=== PATIENT | male | born 1955 | race Caucasian/White ===

== ENCOUNTER → 2016-08-13 | Outpatient (CLI) | payer MEDICARE, OTHER ==
--- NOTE | 2016-08-13 15:05 | US ---
EXAMINATION TYPE: US gallbladder DATE OF EXAM: 08/13/2016 2:24 PM COMPARISON: CT abdomen and pelvis January 16, 2015. CLINICAL HISTORY: R10.11 RUQ Pain, R10.[address] on PACS. Patient states has had back jimenez rgeries and neck surgeries; epigastric pain with meals EXAM MEASUREMENTS: Liver Length: 12.0 cm Gallbladder Wall: 0.1 cm CBD: 0.3 cm Right Kidney: 9.1 x 4.9 x 4.2 cm TECHNOLOGIST IMPRESSION: Pancreas: wnl Liver: wnl Gallbladder: wnl Evidence for sonographic Galaviz's sign: No CBD: wnl Right Kidney: couple of renal cysts with larger at upper pole = 0.8 x 0.9 x 0.6cm Visualized pancreas is unremarkable. Proximal abdominal aorta measures up to 2.9 cm in AP diameter. V isualized liver is felt within normal limits. There are no shadowing mobile gallstones in gallbladder . A few tiny simple appearing cysts are felt scattered throughout the right kidney though all lesions are subcentimeter and thus too small to definitively characterize. IMPRESSION: No gallstones or ultrasound evidence for acute cholecystitis.
--- NOTE | 2016-08-13 17:57 | NM ---
EXAMINATION TYPE: NM hepatobiliary w EF DATE OF EXAM: 08/13/2016 5:12 PM COMPARISON: Ultrasound gallbladder 13 August 2016, CT abdomen and pelvis 16 January 2015 HISTORY: Right upper quadrant pain, epigastric pain TECHNIQUE: After the intravenous administration of 5.5 mCi Tc 99m Mebrofenin hepatobiliary scintigrap hy is performed. Immediate images post injection. FINDINGS: There is satisfactory initial accumulation of tracer by the liver. The gallbladder is visualized wit hin 16 minutes. Acquisition of images was subsequently aborted at approximately 22 minutes. Small bow el activity is detected on delayed images. No bladder ejection fraction calculated at 75%. IMPRESSION: Exam somewhat disjointed as described. Gallbladder ejection fraction is calculated at nor mal.
== END | disposition home or self-care (01) ==
LOC: RADUSMAIN 13:52
PROVIDERS: ATTEND Surgery Plastic and Reconstructive Surgery
DX: R10.13 Epigastric pain (principal); R10.11 Right upper quadrant pain
CPT/HCPCS: 76705; 78226; A9537

== ENCOUNTER → 2017-11-07 | Outpatient (CLI) | payer MEDICARE, OTHER ==
--- NOTE | 2017-11-07 16:03 | CT ---
EXAMINATION TYPE: CT facial bones wo con DATE OF EXAM: 11/07/2017 COMPARISON: NONE HISTORY: Lt jaw pain and swelling CT DLP: 551.6 mGycm CONTRAST: None Technique: The paranasal sinuses are examined in the axial plane at 2 mm thick sections. Reconstruct ed images in the coronal plane were obtained. FINDINGS: There is dental amalgam scatter artifact. Mandible appears intact. Temporomandibular juncti on appears normal. Zygomatic arches are normal. Maxillary spine is normal. Maxilla appears normal. The maxillary sinuses are clear. The ethmoid air cells are clear. The sphenoid sinuses are clear. The frontal sinuses are clear. The septum is evaluated. There is septal deviation to the left. The ostiomeatal units are patent. Portion of the mastoid air cells visualized are normal. BB cali the left parotid gland. There is a 0.2 cm calcification within the left inferior parotid gla nd additional punctate calcifications are within the bilateral parotid glands. IMPRESSIONS: 1. Sialolithiasis within the bilateral parotid glands. The largest on the left is 0.2 cm at the infe rior pole which is near the level marked by the BB at the level of the patient's swelling.
== END | disposition home or self-care (01) ==
LOC: RADCTMAIN 12:02
PROVIDERS: ATTEND Family Medicine
DX: K11.5 Sialolithiasis (principal); R19.7 Diarrhea, unspecified
CPT/HCPCS: 70486; 84260

== ENCOUNTER → 2018-02-17 | Outpatient (CLI) | payer MEDICARE ==
[2018-02-17 14:30] LABS: Basophils % (A) 1 %; Eosinophils # (A) 0.1 k/uL (0-0.7); Eosinophils % (A) 2 %; HCT 43.2 % (39.0-53.0); HGB 14.9 gm/dL (13.0-17.5); Lymphocytes # (A) 0.9 k/uL (1.0-4.8); Lymphocytes % (A) 19 %; MCH 31.9 pg (25.0-35.0); MCHC 34.6 g/dL (31.0-37.0); MCV 92.3 fL (80.0-100.0); Mean Platelet Volume 7.7; Monocytes # (A) 0.3 k/uL (0-1.0); Monocytes % (A) 6 %; Neutrophils # (A) 3.3 k/uL (1.3-7.7); Neutrophils % (A) 69 %; Platelet Count 238 k/uL (150-450); RBC 4.68 m/uL (4.30-5.90); RDW 12.6 % (11.5-15.5); WBC 4.7 k/uL (3.8-10.6)
--- NOTE | 2018-02-17 14:39 | XR ---
EXAMINATION TYPE: XR chest 2V DATE OF EXAM: 02/17/2018 COMPARISON: NONE TECHNIQUE: PA and lateral views submitted. HISTORY: Sarcoidosis FINDINGS: The lungs are clear and there is no pneumothorax, pleural effusion, or focal pneumonia. Biapical pl eural thickening. Postsurgical change overlying the cervical spine. Curvature of the thoracic spine. Arthropathy of the shoulders. Hypertrophic change of the spine. IMPRESSION: 1. No acute process.
[2018-02-17 15:52] LABS: Erythrocyte Sedimentation Rate 8 mm/hr (0-15)
== END | disposition home or self-care (01) ==
LOC: LABWHC1 13:54
PROVIDERS: ATTEND Otolaryngology
DX: D86.9 Sarcoidosis, unspecified (principal); K11.7 Disturbances of salivary secretion
CPT/HCPCS: 36415; 71046; 82164; 85025; 85652; 86038; 86235

== ENCOUNTER → 2018-03-09 | Outpatient (CLI) | payer MEDICARE, OTHER ==
--- NOTE | 2018-03-09 13:56 | CT ---
EXAMINATION TYPE: CT facial bones wo con DATE OF EXAM: 03/09/2018 COMPARISON: 11/07/2017 HISTORY: Patient states he had mass of right parotid removed , but still has lumps remaining ju st anterior and inferior to left ear. CT DLP: 341.7 mGycm CONTRAST: 0 mL of Isovue 300 The paranasal sinuses are examined in the axial plane at 2 mm thick sections. Reconstructed images i n the coronal plane were obtained. There is dental amalgam scatter artifact The maxillary sinuses are clear. The ethmoid air cells are clear. The sphenoid sinuses are clear. The frontal sinuses are clear. The septum is evaluated. There is septal deviation to the left. The ostiomeatal units are patent. Bilateral parotid glands are evaluated. There multiple small calcifications within the parotid glands could be a sialolithiasis. IMPRESSIONS: 1. No suspicious parotid masses or lymphadenopathy. 2. Multiple small rounded calcifications within the bilateral parotid glands may be sialolithiasis.
== END | disposition home or self-care (01) ==
LOC: RADCTMAIN 11:07
PROVIDERS: ATTEND Family Medicine
DX: K11.8 Other diseases of salivary glands (principal)
CPT/HCPCS: 70486

== ENCOUNTER → 2018-04-13 | Outpatient (CLI) | payer MEDICARE, OTHER ==
--- NOTE | 2018-04-13 10:19 | MR ---
MRI CERVICAL SPINE: CLINICAL HISTORY: Cervical disc displacement, history of surgery 9 years ago TECHNIQUE: Multiplanar, multisequence imaging of the cervical spine is performed without and with IV contrast, 7 cc of gadolinium was given intravenously. COMPARISON: None. FINDINGS: Sagittal images of the cervical spine show the craniocervical junction to appear within nor mal limits. The cervical and upper thoracic spinal cord is normal in course, caliber, and signal. Co beny images show levoconvex scoliotic curvature positioning centered in the upper thoracic spine. Sa gittal images alignment is satisfactory. There is artifact from anterior fusion plate and suspected i ntervertebral metallic fusion C3-C6 levels. Satisfactory alignment is identified. No suspicious poste rior retropulsion or effacement is seen. There is mild disc space narrowing C2-C3 level. There is mod erate disc space narrowing C6-C7 level. Tiny posterior disc herniations are seen C6-C7 and C7-T1 leve ls on sagittal images. The bone marrow signal intensity is within normal limits above and below surgi estrella levels. No significant spurring is evident. No suspicious enhancement is evident. Axial images at C2-C3 level show left-sided uncovertebral facet degenerative changes causing mild lef t-sided neural foraminal narrowing. Right-sided neural foramen is patent. Axial images at C3-C4 level show artifact from surgical change otherwise are felt within normal limit s. Axial images at C4-C5 level show artifact from surgical change, there is left-sided uncovertebral fac et degenerative changes causing asymmetric mild to moderate left-sided neural foraminal narrowing. Axial images at the C5-C6 level show artifact from surgical change. There is left foraminal spurring or spur disc complex causing asymmetric moderate to advanced left-sided neural foraminal narrowing se en best axial image 21. Right-sided neural foramen is patent. Spinal canal is preserved. Axial images at C6-C7 level show foraminal spur disc complexes causing mild to moderate bilateral josefina ral foraminal narrowing. Spinal canal is mildly effacing anteriorly. Axial images at C7-T1 level show some effacement of anterior thecal sac due to small posterior disc p rotrusion. Bilateral neural foramina are patent. IMPRESSION: Postsurgical change C3 through the C6 level with satisfactory alignment. Some multilevel degenerative changes are seen as detailed above.
== END | disposition home or self-care (01) ==
LOC: RADMRIMAIN 08:21
PROVIDERS: ATTEND Orthopaedic Surgery Orthopaedic Surgery of the Spine
DX: Z47.89 Encounter for other orthopedic aftercare (principal); M47.812 Spondylosis without myelopathy or radiculopathy, cervical region; Z98.1 Arthrodesis status; Z13.9 Encounter for screening, unspecified; Z98.890 Other specified postprocedural states
CPT/HCPCS: 82565; 72156; 36415; A9585

== ENCOUNTER 2021-07-22 01:58 | Observation (INO) | payer MEDICARE, OTHER ==
[2021-07-22] MEDS ORDERED: KETOROLAC 15 MG/ML 1 ML VIAL IM STA (02:36)
[2021-07-22] MEDS ORDERED: diazePAM 5 MG TAB PO STA (02:37)
[2021-07-22] MEDS ORDERED: HYDROmorphone 1 MG/ML 1 ML SYRINGE IM STA (03:26)
--- NOTE | 2021-07-22 04:37 | CT ---
EXAMINATION TYPE: CT cervical spine wo con DATE OF EXAM: 07/22/2021 COMPARISON: MRI scan cervical spine 04/13/2018 HISTORY: chronic neck pain CT DLP: 358.7 mGycm Automated exposure control for dose reduction was used. Images obtained from the skull base to T1 vertebra without contrast. The vertebra have fairly normal alignment. There is diffuse anterior fusion surgery from C3 to C6. Th e posterior elements appear intact. There is no compression fracture. There is defect in the anterior arch of C1 which is chronic appearing. The prevertebral soft tissues appear intact. The skull base i s intact. There is normal aeration of the mastoid sinuses. IMPRESSION: There is linear defect through the anterior arch of C1 vertebra that is slightly irregular and likely chronic injury. No definite acute fracture. Multilevel fusion surgery. Alignment of the vertebra not changed compared to old exam.
[2021-07-22] MEDS ORDERED: ONDANSETRON ODT 4 MG TAB PO STA (05:36)
--- NOTE | 2021-07-22 05:43 | ED ---
Neck Injury/Pain HPI - General Chief Complaint: Neck Pain/Injury Stated Complaint: Neck Pain Mode of arrival: ambulatory Limitations: no limitations - History of Present Illness Initial Comments: 66-year-old male with past medical history of degenerative disc disease, fibromyalgia, chronic back pain presents to the emergency department or neck pain. Reports that he was originally injured when he was 12 years old and has had chronic neck pain his entire life. He did have an anterior cervical fusion from C3 through C6 in the remote past. He has continued to suffer with chronic pain. States over the past 6 months his pain has gotten worse and as of the last few days has been intractable. Reports that he has now developed some numbness in his right fifth digit. He denies any new trauma. He has not taken any medications at home for his pain. Patient hunting to get into a spine doctor however has not had any success. He is from the [facility] and is just in town visiting. He denies any headaches or visual changes. No fevers. No history of intravenous drug use. No history of cervical abscesses. No other alleviating, precipitating or modifying factors - Related Data Home Medications Medication Instructions Recorded Confirmed Cholecalciferol [Vitamin D3 (25 50 mcg PO DAILY 07/22/21 07/22/21 Mcg = 1000 Iu)] Rosuvastatin [Crestor] 20 mg PO HS 07/22/21 07/22/21 Previous Rx's Medication Instructions Recorded oxyCODONE-APAP 5-325MG [Percocet 1 each PO Q4HR PRN #18 tab 07/24/21 5-325 mg] Allergies Allergy/AdvReac Type Severity Reaction Status Date / Time gabapentin [From Neurontin] Allergy Severe Swelling Verified 07/22/21 07:54 morphine Allergy Severe Dyspnea Verified 07/22/21 07:54 pregabalin [From Lyrica] Allergy Severe Swelling Verified 07/22/21 07:54 shellfish derived [Shrimp] Allergy Severe SWELLING, Verified 07/22/21 07:54 REDNESS azithromycin Allergy Unknown Unknown Verified 07/22/21 07:54 [From Zithromax Z-Emory] levofloxacin [From Levaquin] Allergy Unknown Unknown Verified 07/22/21 07:54 Penicillins Allergy Unknown Unknown Verified 07/22/21 07:54 Childhood sulfamethoxazole Allergy Unknown Unknown Verified 07/22/21 07:54 [From Bactrim] trimethoprim [From Bactrim] Allergy Unknown Unknown Verified 07/22/21 07:54 yeast, dried [yeast] Allergy Unknown Unknown Verified 07/22/21 07:54 black pepper Allergy Unknown Verified 07/24/21 06:26 cheese Allergy Unknown Verified 07/24/21 06:26 garlic Allergy Unknown Verified 07/24/21 06:26 Iodinated Contrast Media Allergy Swelling Verified 07/22/21 07:54 [Iodinated Contrast Media - IV Dye] milk Allergy Unknown Verified 07/24/21 06:26 silver Allergy Swelling Verified 07/22/21 07:54 [From Tegaderm AG Mesh] TEGADERM Allergy Severe Swelling Uncoded 07/22/21 07:54 TEGADERM IV BANDAGE Allergy Swelling Uncoded 07/22/21 07:54 Review of Systems ROS Statement: Those systems with pertinent positive or pertinent negative responses have been documented in the HPI. ROS Other: All systems not noted in ROS Statement are negative. Past Medical History Past Medical History: Fibromyalgia, Hyperlipidemia, Musculoskeletal Disorder, Osteoarthritis (OA) Additional Past Medical History / Comment(s): DDD, BACK PAIN, LEFT INGUINAL HERNIA. WEANING HIMSELF OFF PAIN MEDS. covid X2 History of Any Multi-Drug Resistant Organisms: None Reported Past Surgical History: Back Surgery, Hernia Repair, Orthopedic Surgery, Tonsillectomy Additional Past Surgical History / Comment(s): BACK SURGERY X3(LAST JUN 2014), NECK SURGERY WITH STEEL PLATES, RT KNEE SURG, CYST AXILLA , RT ING HERNIA Past Anesthesia/Blood Transfusion Reactions: No Reported Reaction Past Psychological History: Depression Smoking Status: Never smoker Past Alcohol Use History: None Reported Past Drug Use History: None Reported - Past Family History Father Family Medical History: Cancer Additional Family Medical History / Comment(s): LUNG CA Brother(s) Family Medical History: Cancer Additional Family Medical History / Comment(s): SKIN CA General Exam Limitations: no limitations General appearance: alert, in no apparent distress Head exam: Present: atraumatic, normocephalic, normal inspection Eye exam: Present: normal appearance, PERRL, EOMI. Absent: scleral icterus, conjunctival injection, periorbital swelling ENT exam: Present: normal exam, mucous membranes moist Neck exam: Present: tenderness (paraspinal tenderness. Equal fourdrinier tender strength bilaterally ). Absent: meningismus, lymphadenopathy Respiratory exam: Present: normal lung sounds bilaterally. Absent: respiratory distress, wheezes, rales, rhonchi, stridor Cardiovascular Exam: Present: regular rate, normal rhythm, normal heart sounds. Absent: systolic murmur, diastolic murmur, rubs, gallop, clicks GI/Abdominal exam: Present: soft, normal bowel sounds. Absent: distended, tenderness, guarding, rebound, rigid Extremities exam: Present: normal inspection, full ROM, normal capillary refill. Absent: tenderness, pedal edema, joint swelling, calf tenderness Back exam: Present: normal inspection Neurological exam: Present: alert, oriented X3, CN II-XII intact Psychiatric exam: Present: normal affect, normal mood Skin exam: Present: warm, dry, intact, normal color. Absent: rash Course Vital Signs 07/22/21 07/22/21 07/22/21 02:08 04:10 07:00 Temperature 97.8 F 98.2 F Pulse Rate 77 78 72 Pulse Rate [ 62 Right Prone] Respiratory 18 18 20 Rate Blood Pressure 158/104 142/90 146/93 Blood Pressure 141/77 [Right Arm Prone] O2 Sat by Pulse 98 95 98 Oximetry Medical Decision Making - Medical Decision Making Upon arrival patient was placed into room 18. A thorough history and physical exam was performed. Patient was given 5 mg of Valium, 30 mg of IM Toradol. The patient is reevaluated and continues to have pain. Because of this he was given a dose of Dilaudid. Patient reports that this is only exacerbating his symptoms. He is now nauseated and vomiting. Requesting additional medications for his symptoms. At this time the patient is given 4 mg of Zofran and [address] of the cervical spine is performed which demonstrates a chronic C1 injury. She is reevaluated and states that his symptoms are not improved whatsoever. Because of this I did recommend admission. Spoke with Dr. Cárdenas who felt that the patient could be admitted to our facility with an MRI. Requested that the patient be placed in a cervical collar however he refused. Patient will be admitted to medicine. Did speak with Dr. Pompa who agreed to admit the patient. Orthopedics will be on consult. Patient taken to the floor in stable condition - Lab Data Result diagrams: 07/22/21 06:38 07/22/21 06:38 Disposition Clinical Impression: Neck pain, S/P cervical spinal fusion Disposition: ADMITTED IP TO THIS HOSP Condition: Stable Is patient prescribed a controlled substance at d/c from ED?: No Decision to Admit Reason: Admit from EC Decision Date: 07/22/21 Decision Time: 06:00
[2021-07-22] MEDS ORDERED: SODIUM CHLORIDE 0.9% 1,000 ML IV ONE (05:54)
[2021-07-22] MEDS ORDERED: CYCLOBENZAPRINE 10 MG TAB PO ONE (06:00)
[2021-07-22] MEDS ORDERED: NALOXONE 0.4 MG/ML 1 ML VIAL IV PRN (06:00)
[2021-07-22] MEDS ORDERED: ONDANSETRON 4 MG/2 ML VIAL IVP PRN (06:20)
[2021-07-22 06:44] LABS: Basophils % (A) 1 %; Eosinophils # (A) 0.1 k/uL (0-0.7); Eosinophils % (A) 2 %; HCT 43.3 % (39.0-53.0); Lymphocytes # (A) 1.3 k/uL (1.0-4.8); Lymphocytes % (A) 23 %; MCH 32.7 pg (25.0-35.0); MCHC 34.5 g/dL (31.0-37.0); MCV 94.6 fL (80.0-100.0); Mean Platelet Volume 8.4; Monocytes # (A) 0.3 k/uL (0-1.0); Monocytes % (A) 4 %; Neutrophils # (A) 3.9 k/uL (1.3-7.7); Neutrophils % (A) 68 %; Platelet Count 233 k/uL (150-450); RBC 4.58 m/uL (4.30-5.90); RDW 12.3 % (11.5-15.5); WBC 5.7 k/uL (3.8-10.6)
[2021-07-22 06:56] LABS: ALT 32 U/L (4-49); AST 37 U/L (17-59); African American GFR (CKD) >90 (>60 ml/min/1.73 sqM); Albumin 4.5 g/dL (3.5-5.0); Alkaline Phosphatase 50 U/L (38-126); Anion Gap 9 mmol/L; Blood Urea Nitrogen 24 mg/dL (9-20); Calcium 9.3 mg/dL (8.4-10.2); Carbon Dioxide 21 mmol/L (22-30); Chloride 106 mmol/L (98-107); Glucose 122 mg/dL (74-99); Non-African American GFR(CKD) >90 (>60 ml/min/1.73 sqM); Sodium 136 mmol/L (137-145); Total Bilirubin 0.8 mg/dL (0.2-1.3); Total Protein 8.4 g/dL (6.3-8.2)
--- NOTE | 2021-07-22 08:54 | P.CNOR ---
<Jodi Lau - Last Filed: 07/22/21 12:52> History of Present Illness - [facility] Consult date: 07/22/21 Consult reason: neck pain History of present illness: The patient is a 66 y/o male that presented to the emergency department last night with severe neck pain. He does have a history of C3-C6 fusion in the past. The patient states his neck pain started about 6 months ago. He went to the ER in [place] and they gave him pain medication. He then went to a urgent care due to ongoing pain and they gave him more pain medication, a muscle relaxer and and a sleep medication. The patient states he has been unable to sleep due to the pain for months. He denies any injury. He has not seen anyone else on the outpatient basis for his neck pain. The patient is currently in the area visiting his daughter and her family. When he was in the ER last night, he states he was experiencing numbness in the bilateral thumbs and index fingers bu t that numbness has improved this morning. Pain medication was given and he started vomiting. He states he was nauseated before he came to the ER last night. Orthopedics was consulted for further evaluation of his cervical spine. Today, the patient is still nauseated and has vomited this morning. His neck still very painful. Review of Systems Constitutional: Denies chills, Denies fatigue, Denies fever Cardiovascular: Denies chest pain, Denies shortness of breath Respiratory: Denies cough Gastrointestinal: Reports nausea, Reports vomiting, Denies diarrhea Musculoskeletal: Reports neck pain, Reports neck stiffness Past Medical History Past Medical History: Fibromyalgia, Hyperlipidemia, Musculoskeletal Disorder, Osteoarthritis (OA) Additional Past Medical History / Comment(s): DDD, BACK PAIN, LEFT INGUINAL HERNIA. WEANING HIMSELF OFF PAIN MEDS. covid X2 History of Any Multi-Drug Resistant Organisms: None Reported Past Surgical History: Back Surgery, Hernia Repair, Orthopedic Surgery, Tonsillectomy Additional Past Surgical History / Comment(s): BACK SURGERY X3(LAST JUN 2014), NECK SURGERY WITH STEEL PLATES, RT KNEE SURG, CYST AXILLA , RT ING HERNIA Past Anesthesia/Blood Transfusion Reactions: No Reported Reaction Past Psychological History: Depression Smoking Status: Never smoker Past Alcohol Use History: None Reported Past Drug Use History: None Reported - Past Family History Father Family Medical History: Cancer Additional Family Medical History / Comment(s): LUNG CA Brother(s) Family Medical History: Cancer Additional Family Medical History / Comment(s): SKIN CA Medications and Allergies Home Medications Medication Instructions Recorded Confirmed Type Cholecalciferol [Vitamin D3 (25 50 mcg PO DAILY 07/22/21 07/22/21 History Mcg = 1000 Iu)] Rosuvastatin [Crestor] 20 mg PO HS 07/22/21 07/22/21 History Allergies Allergy/AdvReac Type Severity Reaction Status Date / Time gabapentin [From Neurontin] Allergy Severe Swelling Verified 07/22/21 07:54 morphine Allergy Severe Dyspnea Verified 07/22/21 07:54 pregabalin [From Lyrica] Allergy Severe Swelling Verified 07/22/21 07:54 shellfish derived [Shrimp] Allergy Severe SWELLING, Verified 07/22/21 07:54 REDNESS azithromycin Allergy Unknown Unknown Verified 07/22/21 07:54 [From Zithromax Z-Emory] levofloxacin [From Levaquin] Allergy Unknown Unknown Verified 07/22/21 07:54 Penicillins Allergy Unknown Unknown Verified 07/22/21 07:54 Childhood sulfamethoxazole Allergy Unknown Unknown Verified 07/22/21 07:54 [From Bactrim] trimethoprim [From Bactrim] Allergy Unknown Unknown Verified 07/22/21 07:54 yeast, dried [yeast] Allergy Unknown Unknown Verified 07/22/21 07:54 Iodinated Contrast Media Allergy Swelling Verified 07/22/21 07:54 [Iodinated Contrast Media - IV Dye] silver Allergy Swelling Verified 07/22/21 07:54 [From Tegaderm AG Mesh] TEGADERM Allergy Severe Swelling Uncoded 07/22/21 07:54 TEGADERM IV BANDAGE Allergy Swelling Uncoded 07/22/21 07:54 Physical Examination The patient is a 66 y/o male in no acute distress. He is alert and oriented x3. The patient's head is normocephalic, atraumatic. Exam of the cervical spine reveals no open wounds or abrasions. There is moderate paraspinal spasms bilaterally on palpation. No stepoffs noted. The patient is unable to turn head in either direction due to pain. No flexion or extension due to pain and guarding. No numbness to the arms or hand this morning. Circulatory status to the bilateral upper extremities are intact. Results - Labs Labs: Abnormal Lab Results - Last 24 Hours (Table) 07/22/21 Range/Units 06:38 Sodium 136 L (137-145) mmol/L Carbon Dioxide 21 L (22-30) mmol/L BUN 24 H (9-20) mg/dL Glucose 122 H (74-99) mg/dL Total Protein 8.4 H (6.3-8.2) g/dL H & H 07/22/21 Range/Units 06:38 Hgb 15.0 (13.0-17.5) gm/dL Hct 43.3 (39.0-53.0) % Result Diagrams: 07/22/21 06:38 07/22/21 06:38 - Diagnostic results CT scan - cervical: image reviewed (CT of the cervical spine reveals a subacute C1 injury. Status post C3-C6 fusion. ) Assessment and Plan (1) Neck pain Current Visit: Yes Status: Acute Code(s): M54.2 - CERVICALGIA SNOMED Code(s): 98679791 (2) S/P cervical spinal fusion Current Visit: Yes Status: Acute Code(s): Z98.1 - ARTHRODESIS STATUS SNOMED Code(s): 8900899312358 Plan: The clinical and CT findings were discussed with the patient. The case was discussed at length with Dr. Cárdenas. No acute changes to the cervical spine and the C1 fracture is most likely subacute. We will start him on Solumedrol then change to PO taper on discharge. Continue Zofran for nausea control. Continue P ercocet for pain. I encouraged the patient to use the cervical collar but he states the collar causes too much pain. An MRI has been ordered. Hard collar has been ordered and needs to be applied to the patient when available. We will awaiting MRI results and the patient will be seen by Dr. Estrella or AMALIA Carias tomorrow for further evaluation by orthopedic spine surgery. <Julianne Cárdenas - Last Filed: 07/22/21 13:58> History of Present Illness - HPI History of present illness: Cervical fusion was 11 year ago. Pt does not remember where. He has chronic facial drooping and pupillary dilation on the left side since then. He started having worsening pain in the last 6 months to a year. He states that he will occasionally "black out" from the pain. He does not endorse any dizziness prior to these events and they have never resulted in a fall. The last episode was a week ago when he laid down on the couch to rest because of the pain and his friend had to wake him up. This has been going on for about the last year. His nausea has resolved and he does not feel any dizziness. Physical Examination Osteopathic Statement: *. No significant issues noted on an osteopathic structural exam other than those noted in the History and Physical/Consult. Results - Labs Labs: Abnormal Lab Results - Last 24 Hours (Table) 07/22/21 Range/Units 06:38 Sodium 136 L (137-145) mmol/L Carbon Dioxide 21 L (22-30) mmol/L BUN 24 H (9-20) mg/dL Glucose 122 H (74-99) mg/dL Total Protein 8.4 H (6.3-8.2) g/dL H & H 07/22/21 Range/Units 06:38 Hgb 15.0 (13.0-17.5) gm/dL Hct 43.3 (39.0-53.0) % Result Diagrams: 07/22/21 06:38 07/22/21 06:38 Assessment and Plan Plan: Imaging shows that fusion is solid but the area around the C1 fracture seems to suggest that it is subacute. This seems consistent with the lack of recent trauma of any sort. We will get an MRI to confirm chronicity and have the patient use a hard collar until then. We'll also get a CTA with premedication for his reported allergy to rule out any arterial injury. Agree with Solumedrol for pain control, especially because it seems like he is very sensitive to strong opiates.
[2021-07-22] MEDS: CHOLECALCIFEROL 25 MCG (1000 IU) TABLET PO SCH (09:00)
[2021-07-22] MEDS: KETOROLAC 30 MG/ML 1 ML VIAL IVP PRN ×2 (09:06→22:57)
[2021-07-22] MEDS: oxyCODONE-APAP 5-325MG 1 EACH TAB PO PRN ×3 (09:13→20:51)
[2021-07-22] MEDS: methylPREDNISolone SOD SUCCI 125 MG/2 ML VIAL IV SCH ×3 (09:16→22:54)
[2021-07-22] MEDS: SODIUM CHLORIDE 0.9% 1,000 ML IV SCH ×2 (09:47→19:11)
[2021-07-22] MEDS ORDERED: diphenhydrAMINE 50 MG/ML 1 ML VIAL IVP ONE (13:59)
[2021-07-22] MEDS ORDERED: FAMOTIDINE 20 MG/2 ML VIAL IV ONE (13:59)
[2021-07-22] MEDS ORDERED: methylPREDNISolone SOD SUCCI 125 MG/2 ML VIAL IV ONE (13:59)
--- NOTE | 2021-07-22 16:00 | P.HPIM ---
<Anders Eisenberg - Last Filed: 07/22/21 15:40> History of Present Illness H&P Date: 07/22/21 History of Presenting Illness: Patient is a very pleasant 66-year-old male with a past medical history of hyperlipidemia, fibromyalgia, degenerative disc disease and chronic neck and back pain previously undergoing 4 previous neck surgeries in 2 backsurgeries. He presented to the emergency department with severe neck pain. Patient reports he has been experiencing uncontrolled neck pain off and on for the past 6 months progressively worsening and is now intractable. He reports pain is now shooting down right arm and is experiencing numbness in his fifth digit of right hand. Patient reports previous spinal surgeries by Dr. Ash of [facility]. In the emergency department, patient was seen and fully evaluated. CT cervical spine completed in the ER revealing linear defect. Anterior arch of C1 vertebra that is slightly irregular and likely chronic injury with no definitive acute fracture, multilevel fusion surgeries and alignment of the vertebra not change compared to previous examination. Lab work showing no significant abnormalities. Patient was admitted to observation under our services with consultation to orthospine. Patient seen and fully evaluated at the bedside. He reports tenderness 10 neck pain and inability to turn his head from side to side. Patient states pain chronically shoots down right arm and into the right fifth digit accompanied by numbness and fifth digit otherwise denies having any decreased range of motion, numbness, or tingling in his extremities. He denies having any headache or lightheadedness, changes in vision or hearing, difficulty swallowing or clearing secretions, chest pain, palpitations, or shortness of breath. Patient reports cervical collar was placed in the ED, but states that he took it off secondary to "it being uncomfortable". Review of systems: Pertinent positives and negatives as discussed in HPI, a complete review of systems was performed and all other systems are negative. Physical exam: Vital signs reviewed and stable. General: Nontoxic, no distress and appears stated age. Derm: Skin warm and dry, normal coloration for ethnicity. Head: Atraumatic, normocephalic and symmetric. Neck with decreased range of motion and inability to rotate, flex, or extend secondary to severe pain and muscle spasms. Eyes: EOMs intact, no lid lag, and anicteric sclera Mouth: No lip lesions, mucus membranes moist Cardiovascular: regular rate and rhythm with normal S1S2, no murmur, positive posterior tibial pulses bilaterally, and cap refill < 2 seconds. Lungs: Respirations even, regular, and unlabored on room air. Lungs CTA bilaterally, no rhonchi, no rales, no wheezing, and no accessory muscle usage. Abdominal: soft, nontender to palpation, no guarding, no appreciable organomegaly Ext: ROM intact. No gross muscle atrophy, no edema, no contractures Neuro: Speech clear, face symmetrical and CN II-XII grossly intact with no noted focal neuro deficits Psych: Alert and oriented to person, place, time, and situation. Appropriate and pleasant affect. Assessment and Plan of Care: Acute exacerbation of chronic Neck pain -Symptomatic care and pain management. -Steroids -Cervical collar -MRI cervical spine with and without contrast -Consult to orthospine specialist, awaiting recommendation. Hyperlipidemia -Continue daily medication regimen with atorvastatin 40 mg nightly. The patient is admitted with an anticipated less than than 2 midnight stay for evaluation of acute exacerbation of chronic pain. CODE STATUS: Full code DVT prophylaxis: Heparin Discussed with: Patient and RN Anticipated discharge date: Tomorrow Anticipated discharge place: Home A total of 45 minutes was spent on the care of this complex patient more than 50% of the time was spent in counseling and care coordination. Past Medical History Past Medical History: Fibromyalgia, Hyperlipidemia, Musculoskeletal Disorder, Osteoarthritis (OA) Additional Past Medical History / Comment(s): DDD, BACK PAIN, LEFT INGUINAL HERNIA. WEANING HIMSELF OFF PAIN MEDS. covid X2 History of Any Multi-Drug Resistant Organisms: None Reported Past Surgical History: Back Surgery, Hernia Repair, Orthopedic Surgery, Tonsillectomy Additional Past Surgical History / Comment(s): BACK SURGERY X3(LAST JUN 2014), NECK SURGERY WITH STEEL PLATES, RT KNEE SURG, CYST AXILLA , RT ING HERNIA Past Anesthesia/Blood Transfusion Reactions: No Reported Reaction Past Psychological History: Depression Smoking Status: Never smoker Past Alcohol Use History: None Reported Past Drug Use History: None Reported - Past Family History Father Family Medical History: Cancer Additional Family Medical History / Comment(s): LUNG CA Brother(s) Family Medical History: Cancer Additional Family Medical History / Comment(s): SKIN CA Medications and Allergies Home Medications Medication Instructions Recorded Confirmed Type Cholecalciferol [Vitamin D3 (25 50 mcg PO DAILY 07/22/21 07/22/21 History Mcg = 1000 Iu)] Rosuvastatin [Crestor] 20 mg PO HS 07/22/21 07/22/21 History Allergies Allergy/AdvReac Type Severity Reaction Status Date / Time gabapentin [From Neurontin] Allergy Severe Swelling Verified 07/22/21 07:54 morphine Allergy Severe Dyspnea Verified 07/22/21 07:54 pregabalin [From Lyrica] Allergy Severe Swelling Verified 07/22/21 07:54 shellfish derived [Shrimp] Allergy Severe SWELLING, Verified 07/22/21 07:54 REDNESS azithromycin Allergy Unknown Unknown Verified 07/22/21 07:54 [From Zithromax Z-Emory] levofloxacin [From Levaquin] Allergy Unknown Unknown Verified 07/22/21 07:54 Penicillins Allergy Unknown Unknown Verified 07/22/21 07:54 Childhood sulfamethoxazole Allergy Unknown Unknown Verified 07/22/21 07:54 [From Bactrim] trimethoprim [From Bactrim] Allergy Unknown Unknown Verified 07/22/21 07:54 yeast, dried [yeast] Allergy Unknown Unknown Verified 07/22/21 07:54 Iodinated Contrast Media Allergy Swelling Verified 07/22/21 07:54 [Iodinated Contrast Media - IV Dye] silver Allergy Swelling Verified 07/22/21 07:54 [From Tegaderm AG Mesh] TEGADERM Allergy Severe Swelling Uncoded 07/22/21 07:54 TEGADERM IV BANDAGE Allergy Swelling Uncoded 07/22/21 07:54 Physical Exam Vitals: Vital Signs Temp Pulse Pulse Resp BP BP Pulse Ox 07/22/21 07:00 98.2 F 72 62 20 146/93 141/77 98 07/22/21 04:10 78 18 142/90 95 07/22/21 02:08 97.8 F 77 18 158/104 98 Intake and Output 07/21/21 07/22/21 07/22/21 22:59 06:59 14:59 Other: Weight 65.771 kg Results CBC & Chem 7: 07/22/21 06:38 07/22/21 06:38 Labs: Abnormal Lab Results - Last 24 Hours (Table) 07/22/21 Range/Units 06:38 Sodium 136 L (137-145) mmol/L Carbon Dioxide 21 L (22-30) mmol/L BUN 24 H (9-20) mg/dL Glucose 122 H (74-99) mg/dL Total Protein 8.4 H (6.3-8.2) g/dL <Alisa Umana - Last Filed: 07/22/21 19:19> History of Present Illness Anders Eisenberg NP rendered care for this patient independently, reviewed the findings and plan as documented in the note above. I did not physically speak with or examine the patient on this date. Physical Exam Osteopathic Statement: *. No significant issues noted on an osteopathic structural exam other than those noted in the History and Physical/Consult. Vitals: Vital Signs Temp Pulse Pulse Resp BP BP Pulse Ox 07/22/21 14:23 98.4 F 72 16 123/84 95 07/22/21 07:00 98.2 F 72 62 20 146/93 141/77 98 07/22/21 04:10 78 18 142/90 95 07/22/21 02:08 97.8 F 77 18 158/104 98 Intake and Output 07/22/21 07/22/21 07/22/21 06:59 14:59 22:59 Intake Total 118 118 Balance 118 118 Intake: Oral 118 118 Other: # Voids 0 1 # Bowel Movements 0 Weight 65.771 kg 65.771 kg Results CBC & Chem 7: 07/22/21 06:38 07/22/21 06:38 Labs: Abnormal Lab Results - Last 24 Hours (Table) 07/22/21 Range/Units 06:38 Sodium 136 L (137-145) mmol/L Carbon Dioxide 21 L (22-30) mmol/L BUN 24 H (9-20) mg/dL Glucose 122 H (74-99) mg/dL Total Protein 8.4 H (6.3-8.2) g/dL
[2021-07-22] MEDS: HEPARIN SODIUM,PORCINE/PF 5,000 UNIT/0.5 ML SYRINGE SQ SCH ×2 (16:12→20:50)
--- NOTE | 2021-07-22 17:18 | CT ---
EXAMINATION TYPE: CT angio head neck DATE OF EXAM: 07/22/2021 COMPARISON: None HISTORY: neck trauma CT DLP: 1322.4 mGycm Automated exposure control for dose reduction was used. CONTRAST: Performed with IV Contrast, patient injected with 65 mL of Isovue 370. There are Three-D postprocessed images. Noncontrast images of the brain show no mass effect or midline shift. There is no sign of intracrania l hemorrhage. Calvarium is intact. There is normal branching pattern of the great vessels on the aortic arch. There is arterial flow in the subclavian arteries bilaterally. There is arterial flow in the common internal and external carot id arteries bilaterally. There is wide patency of the carotid artery bifurcations. There is arterial flow in both vertebral arteries. There is arterial flow in the anterior middle and posterior cerebral arteries. There is arterial flow in the vertebral basilar artery system. There is no evidence of intracranial aneurysm or neovascular ity. There is no mass effect. No evidence of intracranial arterial stenosis. There is normal enhancem ent of the venous sinuses. IMPRESSION: Negative CT angiogram of the neck. Negative CT angiogram of the brain. Negative noncontrast CT scan of the brain.
[2021-07-22] MEDS: ATORVASTATIN 40 MG TAB PO SCH (20:50)
[2021-07-23] MEDS: oxyCODONE-APAP 5-325MG 1 EACH TAB PO PRN ×3 (00:58→16:50)
[2021-07-23] MEDS ORDERED: HYDROmorphone 1 MG/ML 1 ML SYRINGE IVP STA (02:05)
[2021-07-23] MEDS: HEPARIN SODIUM,PORCINE/PF 5,000 UNIT/0.5 ML SYRINGE SQ SCH ×2 (08:24→15:37)
[2021-07-23] MEDS: CHOLECALCIFEROL 25 MCG (1000 IU) TABLET PO SCH (08:24)
[2021-07-23] MEDS: methylPREDNISolone SOD SUCCI 125 MG/2 ML VIAL IV SCH ×2 (08:25→15:38)
--- NOTE | 2021-07-23 13:08 | P.PN ---
Progress Note - Text Progress Note Date: 07/23/21 The patient is a 66-year-old male with chronic neck pain who seen and examined today at bedside in regards to his cervical spine. I was able to discuss case with Dr. Cárdenas and I was able us to speak with the PA and review the notes and review the images that we have available including the computed tomography scan of the cervical spine from yesterday. The patient says that he has had neck pain since he was 12 years old with a bridge fell on his head. He said he did not get any treatment specifically for that and had little care from his parents as well per the patient. He says he has been dealing with neck pain from is his whole life and then 11 years ago underwent cervical spine surgery and had multilevel fusion of his cervical spine. He has also had multilevel fusion in his lumbar spine in the past as well. He says that 2 years ago he also had further surgery at his neck and the base of his skull for his neurologic issues. He says the surgeries were done in [place]. He says he does not recall any specific new issue but started having increased pain in his neck approx imately 6 months ago. He says around that time he did not have any specific trauma but says he had issues with feeling like he was going to pass out. He says he did not fall. He specifically says that he did not have any fall because when he passes out can feel it coming he doesn't sits down or lays down and then wakes up 2 or 3 hours later due to his passing out. He says that he had this occurrence a couple of times before going to seek medical attention. He does not recall any specific medical treatment at that point and went home and went about his business. He says that a similar issue happened again about 2 months ago where he had episodes of passing out radiculopathy would lay down and wake up a couple hours later. He says he went to the walk-in clinic near his home but they did not find any new issues and sent him home as well. He does not have a primary care doctor. He says he got into an argument with his primary care 5 years ago and has not been able to reestablish with a new position. He is been on disability for the past 25 years. He lives at home but says that he has significant help from a friend. He says he is in town now to visit his and children and to get his taxes done. He says he has been having significant pain and was having nausea and presented to the emergency room where he was admitted yesterday. He says that he was having some numbness and tingling in his hands and fingers yesterday but that is completely resolved now. He denies any weakness in the upper extremity. Denies any weakness in his lower extremity is. He says he has pain from a hernia at his left lower quadrant and was having nausea from this as well. He says because of this he has not been able to lay on his left side and he feels like laying on his back has increased some of the pain in his neck. He denies any specific trauma. He denies any new neurologic change today. He denies any worsening neurologic symptoms. We placed him in a hard cervical collar ye sterday and he says that is more uncomfortable for him at his neck but is not causing any neurologic change. We ordered an MRI yesterday but has not been completed yet. Physical exam He's afebrile with stable vital signs Cervical collar is intact. He has some tenderness at the base of his occiput at the midline and at the paravertebral's bilaterally. There is no open wounds lacerations or abrasions. He has well-healed incisions around his left lateral anterior neck and his right lateral anterior neck. There is no erythema there is no swelling. He is nontender anteriorly at his neck. His shoulders have good 5 out of 5 strength with abduction and flexion. His upper extremities have good 5 out of 5 strength with biceps triceps and wrist flexion and extension thumb extension bar host/hostess and finger extension. He is no hyperreflexia. He has negative Melchor's. He has tenderness over his left middle finger with palpation. There is no open wounds lacerations or abrasions and he says this is chronic for him. His lower extremities have full 5 out of 5 muscle strength with dorsiflexion plantar flexion and EHL. He lifts his legs up off the bed independently. He has some tenderness his left lower quadrant of his abdomen. His abdomen soft and nondistended. His chest has good excursion with deep inspiration and expiration Sensory in his upper and lower extremities is intact. Imaging Computed tomography scan of his cervical spine from yesterday is reviewed. Shows a prior fusion with corpectomy and stable fusion from C3 to C6 with hardware intact and stable. There is degenerative change at C1 2 around the atlantodens interface. There appears to be a fracture at the anterior arch of the C1 vertebrae with minimal displacement. There is no posterior displacement of the dens. There is no obvious stenosis on computed tomography scan. The fracture at C1 appears to be somewhat old with sclerotic margins. There are sclerotic changes around the atlantodens interface. Assessment and plan C1 anterior arch fracture, minimally displaced and apparently chronic without specific incident or trauma C1 2 degenerative change at the atlantodens interface, chronic Chronic neck pain C3 to 6 anterior cervical fusion with stable solid fusion History of chronic low back pain History of fibromyalgia No acute new neurologic change Nausea and vomiting resolving Tingling and his fingers resolved, without upper extremity weakness It is difficult to fully ascertain the nature of the C1 anterior arch fracture. It is minimally displaced and without any apparent neurologic change. The fusion from C3 to 6 appears stable. The surgery was done 11 years ago. He had some issues with what he calls passing out multiple times over the past 6 months without specific medical attention but he specifically denies any trauma or falling. It is uncertain when the fracture at C1 occurred but with his increased pain over the past 6 months and the appearance of the fracture he may have a delayed union over the past 6 months from the C1 fracture. He does have significant changes at C1 2 interface which may be due to the injury over the past 6 months. He is not having acute neurologic change or decline and I do not plan any acute surgical intervention. We're awaiting the MRI of his cervical spine to determine help determine the chronicity of the fracture and the status of the neurologic structures as well. If there is overall relative stability I think he can continue treatment with a hard cervical collar. he would like to continue his treatment near his home in [facility] and he would prefer to be in [place] or [place]. He said he try to make an appointment with these areas but needed a referral and we can help provide that referral for him for further definitive management and possible treatment and care for his C1 fracture. He may need a bone stimulator and if this were not helpful could consider surgical intervention. He's not interested in surgical intervention at this point and I think it is okay to try to continue conservative treatment for now. We will order him a more comfortable long-term cervical collar which she should wear at all times at least until further follow-up. we will follow up with him closely once his MRI is completed hopefully today. If it appears relatively stable we may be able to allow discharge with his hard cervical collar with continued follow-up near his home with spine surgery. However if there is new change that we will have to consider further options. We will follow closely with you. He should continue his management in terms of his nausea and vomiting and abdominal pain.
--- NOTE | 2021-07-23 15:36 | P.PN ---
<Anders Eisenberg - Last Filed: 07/23/21 15:32> Subjective Progress Note Date: 07/23/21 Hospital course: Patient is a very pleasant 66-year-old male with a past medical history of hyp erlipidemia, fibromyalgia, degenerative disc disease and chronic neck and back pain previously undergoing 4 previous neck surgeries in 2 backsurgeries. He presented to the emergency department with severe neck pain. Patient reports he has been experiencing uncontrolled neck pain off and on for the past 6 months progressively worsening and is now intractable. He reports pain is now shooting down right arm and is experiencing numbness in his fifth digit of right hand. Patient reports previous spinal surgeries by Dr. Ash of [facility]. In the emergency department, patient was seen and fully evaluated. CT cervical spine completed in the ER revealing linear defect. Anterior arch of C1 vertebra that is slightly irregular and likely chronic injury with no definitive acute fracture, multilevel fusion surgeries and alignment of the vertebra not change compared to previous examination. Lab work showing no significant abnormalities. Patient was admitted to observation under our services with consultation to orthospine. Physical exam: Patient seen and fully evaluated at bedside this morning. He was wearing cervical collar and appeared to be resting comfortably with no noted signs of acute distress. Patient tolerating oral intake and denies having any headache, lightheadedness, dizziness, changes in vision or hearing, sore throat or dysphasia, chest pain or palpitations, or shortness of breath. Patient denied having any numbness or tingling in his extremities today and full range of motion intact. Patient is awaiting to go down for MRI. Vital signs reviewed and stable. General: Nontoxic, no distress and appears stated age. Derm: Skin warm and dry, normal coloration for ethnicity. Head: Atraumatic, normocephalic and symmetric. Cervical collar in place. Eyes: EOMs intact, no lid lag, and anicteric sclera Mouth: No lip lesions, mucus membranes moist Cardiovascular: regular rate and rhythm with normal S1S2, no murmur, positive posterior tibial pulses bilaterally, and cap refill < 2 seconds. Lungs: Respirations even, regular, and unlabored on room air. Lungs CTA bilaterally, no rhonchi, no rales, no wheezing, and no accessory muscle usage. Abdominal: soft, nontender to palpation, no guarding, no appreciable organomegaly Ext: ROM intact. No gross muscle atrophy, no edema, no contractures Neuro: Speech clear, face symmetrical and CN II-XII grossly intact with no noted focal neuro deficits Psych: Alert and oriented to person, place, time, and situation. Appropriate and pleasant affect. Assessment and Plan of Care: Acute exacerbation of chronic Neck pain -Symptomatic care and pain management. -Steroids -Cervical collar -MRI cervical spine with and without contrast -Consult to orthospine specialist, awaiting completion of MRI and further recommendations. Hyperlipidemia -Continue daily medication regimen with atorvastatin 40 mg nightly. The patient is admitted with an anticipated less than than 2 midnight stay for evaluation of acute exacerbation of chronic pain. CODE STATUS: Full code DVT prophylaxis: Heparin Discussed with: Patient and RN Anticipated discharge date: Clinical course to determine, awaiting MRI to be completed Anticipated discharge place: Home A total of 30 minutes was spent on the care of this complex patient more than 50% of the time was spent in counseling and care coordination. Objective - Vital Signs Vital signs: Vital Signs Temp 97.7 F 07/23/21 07:00 Pulse 81 07/23/21 07:00 Resp 16 07/23/21 07:00 BP 123/73 07/23/21 07:00 Pulse Ox 98 07/23/21 07:00 Intake & Output 07/22/21 07/23/21 07/23/21 18:59 06:59 18:59 Intake Total 236 Balance 236 Weight 65.771 kg Intake: Oral 236 Other: # Voids 1 2 # Bowel Movements 0 - Labs CBC & Chem 7: 07/22/21 06:38 07/22/21 06:38 <Aurora Macdonald - Last Filed: 07/23/21 16:33> Subjective I reviewed the documentation as provided by the MARIO above, who is the original author of this note. I agree with the documented assessment and plan, with the following changes: None Objective - Vital Signs Vital signs: Vital Signs Temp 97.6 F 07/23/21 15:00 Pulse 77 07/23/21 15:00 Resp 18 07/23/21 15:00 BP 128/76 07/23/21 15:00 Pulse Ox 98 07/23/21 15:00 Intake & Output 07/22/21 07/23/21 07/23/21 18:59 06:59 18:59 Intake Total 236 480 Balance 236 480 Weight 65.771 kg Intake: Oral 236 480 Other: # Voids 1 2 2 # Bowel Movements 0 - Labs CBC & Chem 7: 07/22/21 06:38 07/22/21 06:38
[2021-07-23] MEDS ORDERED: LORazepam 2 MG/ML INJ IV STA (17:00)
[2021-07-23] MEDS: ATORVASTATIN 40 MG TAB PO SCH (21:17)
[2021-07-23 22:06] VITALS: RESP 16
[2021-07-24] MEDS: methylPREDNISolone SOD SUCCI 125 MG/2 ML VIAL IV SCH ×2 (00:33→09:42)
[2021-07-24] MEDS: HEPARIN SODIUM,PORCINE/PF 5,000 UNIT/0.5 ML SYRINGE SQ SCH ×2 (00:33→09:42)
--- NOTE | 2021-07-24 03:42 | MR ---
EXAMINATION TYPE: MR cervical spine wo/w con DATE OF EXAM: 07/23/2021 COMPARISON: 04/13/2018 HISTORY: Intractable neck pain. CONTRAST: Standard multiplanar, multisequence MRI departmental protocol images were obtained without contrast a nd with 7 mL intravenous Gadavist gadolinium contrast. The cervical vertebra have normal alignment. There is multilevel anterior fusion surgery from C3 to C 6. There is metal artifact. Cervical spinal cord has normal signal pattern. There is no edema. Brains tem appears intact. There is no cervical paraspinal mass. There is no compression fracture. No spinal stenosis. IMPRESSION: Multilevel fusion surgery. No spinal stenosis. No evidence of any significant disc herniation. No silvino nge compared to old exam.
[2021-07-24] MEDS: oxyCODONE-APAP 5-325MG 1 EACH TAB PO PRN ×2 (05:05→15:10)
[2021-07-24] MEDS: CHOLECALCIFEROL 25 MCG (1000 IU) TABLET PO SCH (09:41)
--- NOTE | 2021-07-24 12:30 | P.PN ---
Progress Note - Text Progress Note Date: 07/24/21 Orthopedic spine: History of present illness: Patient is a pleasant 66-year-old male who is seen and examined at the bedside for follow-up evaluation of cervical spine. Since being seen and examined yesterday cervical MRI imaging has been performed. He is also been fitted with [place] hard cervical collar. He has been wearing the collar as instructed but does find it uncomfortable. He does continue to have some cervical pain which he states is exacerbated with cervical extension. His cervical pain has been ongoing over the past 6 months without injury. He denies any upper extremity weakness or radiculopathy bilaterally. Patient has been undergoing further evaluation for a C1 anterior arch fracture, C1-2 degenerative change at the atlantodens interface, and chronic neck pain. He does have a history of previous cervical fusion at C3-6 performed approximately 11 years ago. Patient does not live locally. He states he does feel he is ready for discharge home today and would plan to follow with a spine surgeon in the [place], [place] or [place] area. He would like to take his imaging with him for further evaluation in the outpatient setting. Physical exam: Patient is awake, alert, and oriented 3 Vital signs stable Good chest excursion with deep inspiration and expiration [place] hard cervical collar is intact Examination of the cervical spine reveals skin is intact with no abrasions, lacerations, or bruises; no erythema, purulence or signs of infection Reduced range of motion of the cervical spine with adequate flexion, extension, and bilateral rotation Science Liaison strength, thumb strength, interosseous strength, biceps strength, triceps strength, and shoulder strength positive sustained bilaterally Upper extremity strength 5/5 bilaterally No significant pain with palpation over the posterior cervical spine or trapezius bilaterally Evidence of spasm over the trapezius bilaterally Evidence of well-healed incisions at the left anterior lateral neck and right anterior lateral neck Pertinent studies: MRI of the cervical spine taken on 07/23/2021: Evidence of retained hardware at C3-6 with evidence of anterior fusion; spinal cord has normal signal pattern; no compression fracture deformity; no spinal stenosis; no evidence of significant herniated nucleus pulposus; imaging appears stable without significant changes compared to previous study taken on 04/13/2018; MRI imaging does not have any axial imaging extending to the C1-2 level; do not visualize obvious displacement of the C1 fracture on sagittal imaging CT of the cervical spine taken on 07/22/2021: Evidence of previous fusion C3-6 with corpectomy remained stable with hardware intact; C1-2 degenerative change around the atlantodens interface; there appears to be a fracture the anterior arch of the C1 vertebrae with minimal displacement; C1 fracture appears to be somewhat old with sclerotic margins; No posterior displacement of the dens; no obvious stenosis on CT imaging; sclerotic margins around the atlantodens interface Assessment: C1 anterior arch fracture minimally displaced and apparently chronic without specific incident or trauma C1-2 chronic degenerative change at the atlantodens interface History of C3-6 anterior cervical fusion stable with solid fusion Chronic cervical pain Chronic low back pain History of fibromyalgia Hyperlipidemia Plan: 1. Patient has been discussed in detail with Dr. Cortez Estrella. Imaging has been reviewed by myself and Dr. Cortez Estrella. Reviewing of CT imaging shows evidence of fracture the anterior arch of the C1 vertebrae with minimal displacement which appears to be somewhat old with sclerotic margins. Imaging also shows evidence of C1-2 degenerative change around the atlantodens as well as interface retained hardware at C3-6 with evidence of anterior fusion. MRI imaging does not completely visualize his C1 anterior arch fracture or significant degenerat miguel changes at C1-2 as there are no axial imaging taken up to this level at his cervical spine. Reviewing of sagittal imaging does not show any significant displacement of the C1 anterior arch fracture. MRI imaging remains stable as compared to previous MRI taken on 04/13/2018. He does not have evidence of any significant herniated nucleus pulposus, central canal stenosis, or foraminal stenosis. His hardware remains intact. Patient has been experiencing ongoing cervical pain over the past 6 months without injury. He is not experiencing any neurological decline. He has good active range of motion of his bilateral upper extremities without difficulty. He denies any upper extremity weakness or radiculopathy bilaterally. We did discuss his C1 fracture that his fracture is mostly chronic and nonunion. We did discuss we are not currently planning for any acute surgical intervention in regards to his cervical spine. We did discuss he could benefit with a bone stimulator. He states he was previously prescribed a bone stimulator following his previous cervical fusion that did not tolerate this well and discontinued it. Currently, patient would like to continue treatment in either [place], [place] or [place], [place] as the cities are closer to his home. He does not reside locally. He was fitted with [place] hard cervical collar yesterday. He states he feels his pain is well enough controlled and he is ready for discharge today. 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 We're trying to schedule an appointment with Dr. Juliocesar Monsalve per the patient's request. If patient is unable to schedule a follow-up appointment wit h his desired neurosurgeon, he may contact the office for a follow-up appointment. Patient may follow-up with Jonathan Taveras PA-C or Dr. Cortez Estrella at [facility] in 2-3 weeks following discharge.
--- NOTE | 2021-07-24 13:34 | P.DS ---
<Anders Eisenberg - Last Filed: 07/24/21 15:14> Providers Expected date of discharge: 07/24/21 Hospital Course: Discharge Diagnosis: Acute exacerbation of chronic Neck pain Hyperlipidemia Hospital Course: Patient is a very pleasant 66-year-old male with a past medical history of hyperlipidemia, fibromyalgia, degenerative disc disease and chronic neck and back pain previously undergoing 4 previous neck surgeries in 2 backsurgeries. He presented to the emergency department with severe neck pain. Patient reports he has been experiencing uncontrolled neck pain off and on for the past 6 months progressively worsening and is now intractable. He reports pain is now shooting down right arm and is experiencing numbness in his fifth digit of right hand. Patient reports previous spinal surgeries by Dr. Ash of [facility]. In the emergency department, patient was seen and fully evaluated. CT cervical spine completed in the ER revealing linear defect. Anterior arch of C1 vertebra that is slightly irregular and likely chronic injury with no definitive acute fracture, multilevel fusion surgeries and alignment of the vertebra not change compared to previous examination. Lab work showing no significant abnormalities. Patient was admitted to observation under our services with consultation to orthospine. An MRI was completed showing multilevel fusion surgery with no spinal stenosis and no evidence of any significant disc herniation, unchanged from previous exam 04/13/18. Patient is medically stable for discharge at this time and has been cleared from orthospine services for follow-up outpatient. 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 Juliocesar Monsalve per the patient's request. If patient is unable to schedule a follow-up appointment with his desired neurosurgeon, he may contact the office for a follow-up appointment. Patient may follow-up with Jonathan Taveras PA-C or Dr. Cortez Estrella at [facility] in 2-3 weeks following discharge. Physical exam: Patient seen and fully evaluated at bedside this morning. He was wearing cervical collar and appeared to be resting comfortably with no noted signs of acute distress. Patient tolerating oral intake and denies having any headache, lightheadedness, dizziness, changes in vision or hearing, sore throat or dysphasia, chest pain or palpitations, or shortness of breath. Patient denied having any numbness or tingling in his extremities today and full range of motion intact. Vital signs reviewed and stable. General: Nontoxic, no distress and appears stated age. Derm: Skin warm and dry, normal coloration for ethnicity. Head: Atraumatic, normocephalic and symmetric. Cervical collar in place. Eyes: EOMs intact, no lid lag, and anicteric sclera Mouth: No lip lesions, mucus membranes moist Cardiovascular: regular rate and rhythm with normal S1S2, no murmur, positive posterior tibial pulses bilaterally, and cap refill < 2 seconds. Lungs: Respirations even, regular, and unlabored on room air. Lungs CTA b ilaterally, no rhonchi, no rales, no wheezing, and no accessory muscle usage. Abdominal: soft, nontender to palpation, no guarding, no appreciable organomegaly Ext: ROM intact. No gross muscle atrophy, no edema, no contractures Neuro: Speech clear, face symmetrical and CN II-XII grossly intact with no noted focal neuro deficits Psych: Alert and oriented to person, place, time, and situation. Appropriate and pleasant affect. A total of 35 minutes of time were spent preparing this complex discharge summary. Patient Condition at Discharge: Stable Plan - Discharge Summary Discharge Rx Participant: No New Discharge Prescriptions: New oxyCODONE-APAP 5-325MG [Percocet 5-325 mg] 1 each PO Q4HR PRN #18 tab PRN Reason: Severe Pain Continue Cholecalciferol [Vitamin D3 (25 Mcg = 1000 Iu)] 50 mcg PO DAILY Rosuvastatin [Crestor] 20 mg PO HS Discharge Medication List Cholecalciferol [Vitamin D3 (25 Mcg = 1000 Iu)] 50 mcg PO DAILY 07/22/21 [History] Rosuvastatin [Crestor] 20 mg PO HS 07/22/21 [History] oxyCODONE-APAP 5-325MG [Percocet 5-325 mg] 1 each PO Q4HR PRN #18 tab 07/24/21 [Rx] Follow up Appointment(s)/Referral(s): None,Stated [Primary Care Provider] - 1-2 days Rojelio Cox [NON-STAFF] - As Needed (Supplier of hard cervical collar) Activity/Diet/Wound Care/Special Instructions: Aline will fax pt information to Dr. Juliocesar Monsalve...they will call patient to schedule appt once info is received. is off this week. Follow-up with neurosurgery in [place], amirah Monsalve per patient request Hard cervical collar on at all times, including bathing May ambulate and ride in a car with hard cervical collar on. Discharge Disposition: HOME SELF-CARE <Aurora Macdonald - Last Filed: 07/25/21 16:25> Providers Date of admission: 07/22/21 06:00 Attending physician: Twyla Stanley MD Consults: 07/22/21 06:20 Consult Physician Urgent Consulting Provider: Julianne Cárdenas Consult Reason/Comments: intractable neck pain Do you want consulting provider notified?: Already Contacted 07/22/21 15:16 Consult Physician Routine Consulting Provider: Tina Estrella Consult Reason/Comments: Evaluate neck pain Do you want consulting provider notified?: Already Contacted Primary care physician: Stated None Hospital Course: I reviewed the documentation as provided by the MARIO above, who is the original author of this note. I agree with the documented assessment and plan, with the following changes: None
[2021-07-24 15:47] VITALS: PULSE 90; TEMP 97.4
[2021-07-24 16:07] VITALS: BP 149/81
== END 2021-07-24 16:15 | disposition home or self-care (01) ==
LOC: EC 01:58 → 6NMEDSUR 06:00
PROVIDERS: ADMIT Internal Medicine; ATTEND Internal Medicine
DX: M54.2 Cervicalgia (principal); G89.29 Other chronic pain; Z98.1 Arthrodesis status; M62.838 Other muscle spasm; S12.090A Other displaced fracture of first cervical vertebra, initial encounter for closed fracture; M47.23 Other spondylosis with radiculopathy, cervicothoracic region; E78.5 Hyperlipidemia, unspecified; M79.7 Fibromyalgia; R11.2 Nausea with vomiting, unspecified; H57.04 Mydriasis; R29.810 Facial weakness; M19.90 Unspecified osteoarthritis, unspecified site; F32.A Depression, unspecified; M54.50 Low back pain, unspecified; R10.9 Unspecified abdominal pain; Z79.899 Other long term (current) drug therapy; Z91.041 Radiographic dye allergy status; Z91.011 Allergy to milk products; Z88.0 Allergy status to penicillin; Z91.013 Allergy to seafood; Z88.2 Allergy status to sulfonamides; Z91.018 Allergy to other foods; Z91.048 Other nonmedicinal substance allergy status; Z86.16 Personal history of COVID-19; Z87.828 Personal history of other (healed) physical injury and trauma; Z98.890 Other specified postprocedural states; Z80.1 Family history of malignant neoplasm of trachea, bronchus and lung; Z80.8 Family history of malignant neoplasm of other organs or systems
CPT/HCPCS: 96375 ×4; 96376 ×3; 96361 ×2; 96372 ×3; 96374; 99284; 80053; 85025; 87635; 72125; 70496; 70498; 72156; G0378 ×3; J2060; J1200; J2930 ×3; J1885 ×2; J1170 ×2; Q9967; J1644 ×3; A9585